=== PATIENT | female | born 1940 | race Caucasian/White ===

== ENCOUNTER → 2016-11-23 | Outpatient (CLI) | payer OTHER | LOC: GIMAGING 11:42 | PROVIDERS: ATTEND Family Medicine | DX: M25.551 Pain in right hip (principal) | CPT/HCPCS: 72170-PO ==

== ENCOUNTER → 2016-12-07 | Outpatient (CLI) | payer OTHER | LOC: FIMAGING 12:31 | PROVIDERS: ATTEND Family Medicine | DX: M25.551 Pain in right hip (principal); M16.11 Unilateral primary osteoarthritis, right hip; M25.851 Other specified joint disorders, right hip; M76.01 Gluteal tendinitis, right hip; M76.02 Gluteal tendinitis, left hip; M51.36 Other intervertebral disc degeneration, lumbar region ==

== ENCOUNTER → 2016-12-30 | Outpatient (CLI) | payer OTHER | LOC: FIMAGING 13:43 | PROVIDERS: ATTEND Family Medicine | DX: M85.80 Other specified disorders of bone density and structure, unspecified site (principal); E78.5 Hyperlipidemia, unspecified ==

== ENCOUNTER → 2017-04-12 | Outpatient (CLI) | payer OTHER | LOC: FIMAGING 14:23 | PROVIDERS: ATTEND Family Medicine | DX: Z12.31 Encounter for screening mammogram for malignant neoplasm of breast (principal) | CPT/HCPCS: G0202 ==

== ENCOUNTER 2017-09-29 17:47 | Emergency (ER) | payer OTHER ==
--- NOTE | 2017-09-29 18:45 | EDPHY ---
H & P Time Seen by Provider: 09/29/17 18:11 HPI/ROS: CHIEF COMPLAINT: "Tiredness" HISTORY OF PRESENT ILLNESS: The patient is a 77-year-old male who presents to the emergency department feeling tired starting today. Patient had dental infection on 07/27/2017. This caused her to be treated with antibiotics and she subsequently developed C diff. She has been treated for C diff for the past 1 and half weeks. She has been on Flagyl orally. She comes in today because she developed significant fatigue. She woke up feeling much more tired than yesterday. She denies fevers or chills. She has had mild shortness of breath. No cough. No chest pain. No dysuria frequency. No rash. Patient has mild nonbloody diarrhea. No nausea or vomiting. REVIEW OF SYSTEMS: My complete review of systems is negative except as mentioned in the HPI. Smoking Status: Never smoked Constitutional: Initial Vital Signs Temperature (C) 37.1 C 09/29/17 18:00 Heart Rate 58 L 09/29/17 18:00 Respiratory Rate 16 09/29/17 18:00 Blood Pressure 173/70 H 09/29/17 18:00 O2 Sat (%) 96 09/29/17 18:00 O2 Delivery Mode Room Air Allergies/Adverse Reactions: Penicillins Allergy (Intermediate, Verified 09/29/17 17:59) SWELLING/RASH/SKIN PEEL Sulfa (Sulfonamide Antibiotics) Allergy (Intermediate, Verified 09/29/17 17:59) SWELLING/RASH/SKIN PEELS ALL IMMUNIZATIONS RT MS Allergy (Severe, Uncoded 09/29/17 17:59) Anaphylaxis VINEGAR Allergy (Severe, Uncoded 09/29/17 17:59) Anaphylaxis NSAID Allergy (Intermediate, Uncoded 09/29/17 17:59) UPSET STOMACH EVERYTHING Allergy (Uncoded 09/29/17 17:59) Home Medications: Medication Instructions Recorded Naldalol 05/27/10 Flagyl 09/29/17 Levothyroxine 09/29/17 Oxybutynin 09/29/17 Medical Decision Making - Diagnostics Imaging Results: Imaging Impressions Chest X-Ray 09/29/17 18:47 Impression: No acute process. Mild airways disease similar to 2013. ED Course/Re-evaluation: In the emergency department I discussed possible etiologies with the patient. I answered all her questions. IV was placed. Laboratory studies were obtained. EKG and chest x-ray were ordered. EKG shows normal sinus rhythm, normal rate, normal axis, normal intervals. There are no ST or T-wave abnormalities. EKG is normal as interpreted by me. Patient's CBC and chemistry unremarkable. Troponin is negative. UA negative. Chest x-ray: Please refer the dictated report. No acute disease noted. 2015: Patient states she is feeling much better. She has no complaints. I discussed the laboratory studies. I answered all her questions. She felt comfortable with discharge. She will follow up with primary care physician on Sunday. Differential Diagnosis: My differential includes but is not limited to C diff, electrolyte abnormality, sugar abnormality, bacteremia, sepsis, ACS, acute [place], urinary tract infection, pyelonephritis, pneumonia - Data Points Laboratory Results: Laboratory Results 09/29/17 18:20 09/29/17 18:20 09/29/17 09/29/17 09/29/17 19:20 18:20 18:20 WBC 7.95 10^3/uL 10^3/uL (3.80-9.50) RBC 4.73 10^6/uL 10^6/uL (4.18-5.33) Hgb 13.4 g/dL g/dL (12.6-16.3) Hct 40.8 % % (38.0-47.0) MCV 86.3 fL fL (81.5-99.8) MCH 28.3 pg pg (27.9-34.1) MCHC 32.8 g/dL g/dL (32.4-36.7) RDW 14.0 % % (11.5-15.2) Plt Count 188 10^3/uL 10^3/uL (150-400) MPV 11.4 fL fL (8.7-11.7) Neut % (Auto) 52.7 % % (39.3-74.2) Lymph % (Auto) 36.4 % % (15.0-45.0) [place] % (Auto) 8.1 % % (4.5-13.0) Eos % (Auto) 2.0 % % (0.6-7.6) Baso % (Auto) 0.3 % % (0.3-1.7) Nucleat RBC Rel Count 0.0 % % (0.0-0.2) Absolute Neuts (auto) 4.20 10^3/uL 10^3/uL (1.70-6.50) Absolute Lymphs (auto) 2.89 10^3/uL 10^3/uL (1.00-3.00) Absolute Monos (auto) 0.64 10^3/uL 10^3/uL (0.30-0.80) Absolute Eos (auto) 0.16 10^3/uL 10^3/uL (0.03-0.40) Absolute Basos (auto) 0.02 10^3/uL 10^3/uL (0.02-0.10) Absolute Nucleated RBC 0.00 10^3/uL 10^3/uL (0-0.01) Immature Gran % 0.5 % % (0.0-1.1) Immature Gran # 0.04 10^3/uL 10^3/uL (0.00-0.10) Sodium 139 mEq/L mEq/L (135-145) Potassium 4.1 mEq/L mEq/L (3.5-5.2) Chloride 102 mEq/L mEq/L (97-110) Carbon Dioxide 27 mEq/l mEq/l (22-31) Anion Gap 10 mEq/L mEq/L (8-16) BUN 13 mg/dL mg/dL (7-23) Creatinine 0.7 mg/dL mg/dL (0.6-1.0) Estimated GFR > 60 Glucose 113 mg/dL H mg/dL (70-100) Calcium 9.0 mg/dL mg/dL (8.5-10.4) Total Bilirubin 0.5 mg/dL mg/dL (0.1-1.4) Conjugated Bilirubin 0.4 mg/dL mg/dL (0.0-0.5) Unconjugated Bilirubin 0.1 mg/dL mg/dL (0.0-1.1) AST 62 IU/L H IU/L (14-46) ALT 87 IU/L H IU/L (9-52) Alkaline Phosphatase 94 IU/L IU/L (38-126) Troponin I < 0.012 ng/mL ng/mL (0.000-0.034) Total Protein 6.1 g/dL L g/dL (6.3-8.2) Albumin 3.7 g/dL g/dL (3.5-5.0) Lipase 103 IU/L IU/L (23-300) Urine Color YELLOW Urine Appearance CLEAR Urine pH 6.0 (5.0-7.5) Ur Specific [place] 1.006 (1.002-1.030) Urine Protein NEGATIVE (NEGATIVE) Urine Ketones NEGATIVE (NEGATIVE) Urine Blood NEGATIVE (NEGATIVE) Urine Nitrate NEGATIVE (NEGATIVE) Urine Bilirubin NEGATIVE (NEGATIVE) Urine Urobilinogen NEGATIVE EU EU (0.2-1.0) Ur Leukocyte Esterase NEGATIVE (NEGATIVE) Urine RBC 1-3 /hpf /hpf (0-3) Urine WBC 1-3 /hpf /hpf (0-3) Ur Epithelial Cells NONE SEEN /lpf /lpf (NONE-1+) Urine Mucus TRACE /lpf /lpf (NONE-1+) Urine Glucose NEGATIVE (NEGATIVE) Medications Given: Discontinued Medications Sodium Chloride (Ns) 500 mls @ 0 mls/hr IV EDNOW ONE; Wide Open PRN Reason: Protocol Stop: 09/29/17 18:47 Last Admin: 09/29/17 18:52 Dose: 500 mls Departure - Departure Disposition: Home, Routine, Self-Care Clinical Impression: Shortness of breath Fatigue Qualifiers: Fatigue type: unspecified Qualified Code(s): R53.83 - Other fatigue Condition: Good Instructions: Fatigue (ED) Additional Instructions: Return with increasing weakness, shortness of breath, cough, chest pain or any other concerns. Referrals: Taty Sanches MD [Primary Care Provider] - 2-3 days without fail
[2017-09-29] MEDS ORDERED: NS 500 ML IV ONE (18:46)
[2017-09-29 18:54] LABS: PLATELET COUNT 188 10^3/uL (150-400)
--- NOTE | 2017-09-29 19:00 | CPEKG ---
Heart Rate: 56 RR Interval: 1071 P-R Interval: 164 QRSD Interval: 94 QT Interval: 452 QTC Interval: 437 P Stanley: 62 QRS Stanley: 39 T Wave Stanley: 48 EKG Severity - NORMAL ECG - EKG Impression: SINUS RHYTHM Electronically Signed By: Silvana Whitfield 29-Sep-2017 22:36:04
[2017-09-29 20:35] VITALS: BP 169/76
== END 2017-09-29 20:35 | disposition home or self-care (01) ==
DX: R53.83 Other fatigue (principal); R06.02 Shortness of breath; E86.9 Volume depletion, unspecified

== ENCOUNTER → 2018-02-21 | Outpatient (CLI) | payer OTHER | LOC: BMCIMAGING 14:51 | PROVIDERS: ATTEND Podiatrist Foot & Ankle Surgery | DX: M20.31 Hallux varus (acquired), right foot (principal); M19.071 Primary osteoarthritis, right ankle and foot; M77.31 Calcaneal spur, right foot ==

== ENCOUNTER → 2018-04-25 | Outpatient (CLI) | payer OTHER | LOC: FIMAGING 10:31 | PROVIDERS: ATTEND Family Medicine | DX: Z12.31 Encounter for screening mammogram for malignant neoplasm of breast (principal) ==

== ENCOUNTER → 2018-08-05 | Outpatient (CLI) | payer OTHER | LOC: GIMAGING 16:58 | PROVIDERS: ATTEND Family Medicine | DX: M54.2 Cervicalgia (principal); M79.2 Neuralgia and neuritis, unspecified; M51.36 Other intervertebral disc degeneration, lumbar region; Z98.1 Arthrodesis status | CPT/HCPCS: 72052-PO; 72100-PO ==

== ENCOUNTER 2018-11-06 21:44 | Observation (INO) | payer OTHER | END 2018-11-07 16:25 | disposition home or self-care (01) | LOC: F2W 11-07 02:21 ==

== ENCOUNTER → 2018-11-14 | Outpatient (CLI) | payer OTHER | LOC: FIMAGING 18:36 ==

== ENCOUNTER → 2018-11-18 | Outpatient (CLI) | payer OTHER | LOC: FIMAGING 18:36 ==